=== PATIENT | female | born 1985 | race Two or more races ===

== ENCOUNTER 2022-02-17 16:32 | Emergency (ER) | payer OTHER ==
[~2022-02-17] VITALS: Ht 149.9 cm; Wt 77.2 kg
[2022-02-17 19:00] VITALS: BP 154/73
== END 2022-02-17 19:14 | disposition home or self-care (01) ==
LOC: ER 16:32
DX: R51.9 Headache, unspecified (principal); Z20.822 Contact with and (suspected) exposure to COVID-19
CPT/HCPCS: 36415; 70450